=== PATIENT | female | born 1965 | race Caucasian/White ===

== ENCOUNTER 2022-01-04 03:29 | Emergency (ER) | payer MEDICAID ==
[~2022-01-04 03:29] MED LIST: ASPI-1393 PO; CIPR250T4 PO; ISO10 PO; LOSA50TA3 PO; METO25TA3 PO; PIOG15TA8 PO
--- NOTE | 2022-01-04 03:31 | NUR ---
Patient triaged and placed in waiting room. VSS and patient appears in no acute distress at this time. Accompanied by family members, awaiting room placement, and MD Gordon notified of need for MSE. Addendum: 01/04/22 at 0427 by [email or web address] BRISA GARDNER
--- NOTE | 2022-01-04 03:35 | NUR ---
Placed in room 04. Placed on rn cardiac, blood pressure machine and pulse oximeter. To gown for exam. Side rails up. Report given to BRISA Artis.
[2022-01-04 03:40] VITALS: BP_SYST 129
--- NOTE | 2022-01-04 03:45 | NUR ---
SANJANA Gordon at bedside examining patient.
[2022-01-04] MEDS ORDERED: ACETAMINOPHEN 500 MG TABLET PO ONE (04:15)
[2022-01-04] MEDS ORDERED: ACETAMINOPHEN 500 MG TABLET ONE (04:30)
--- NOTE | 2022-01-04 04:45 | NUR ---
Patient given written and verbal discharge instructions and verbalizes understanding. ER MD Gordon discussed with patient the results and treatment provided. Patient in stable condition. ID arm band removed. Patient educated on pain management and to follow up with PMD. Pain Scale 2/10 Opportunity for questions provided and answered. Medication side effect fact sheet provided.
[2022-01-04 04:46] VITALS: BP_SYST 122
== END 2022-01-04 04:45 | disposition home or self-care (01) ==
LOC: SED 03:29
DX: G44.209 Tension-type headache, unspecified, not intractable (principal); E11.65 Type 2 diabetes mellitus with hyperglycemia
CPT/HCPCS: 99282

== ENCOUNTER 2022-03-01 15:49 | Emergency (ER) | payer MEDICAID ==
[~2022-03-01] VITALS: Ht 154.9 cm; Wt 90.7 kg
[2022-03-01 15:57] VITALS: BP_SYST 141
[2022-03-01] MEDS ORDERED: PHEN-726 PO (16:21)
[2022-03-01] MEDS ORDERED: NITR-85 PO (16:21)
[2022-03-01] MEDS ORDERED: nitrofurantoin macrocrystaL 50 MG CAPSULE PO ONE (16:30)
[2022-03-01] MEDS ORDERED: PHENAZOPYRIDINE HCL 100 MG TABLET PO ONE (16:30)
== END 2022-03-01 18:26 | disposition home or self-care (01) ==
LOC: SED 15:49
DX: N39.0 Urinary tract infection, site not specified (principal); E11.9 Type 2 diabetes mellitus without complications; Z86.79 Personal history of other diseases of the circulatory system; Z90.49 Acquired absence of other specified parts of digestive tract; Z79.899 Other long term (current) drug therapy
CPT/HCPCS: 81002; 99283

== ENCOUNTER 2022-03-17 01:01 | Emergency (ER) | payer MEDICAID ==
[~2022-03-17] VITALS: Ht 152.4 cm; Wt 95.3 kg
[~2022-03-17 01:01] MED LIST changes: +NITR-85 PO; +PHEN-726 PO
[2022-03-17 01:23] VITALS: BP_SYST 164
[2022-03-17 02:12] LABS: BASOPHILS # (AUTO) 0.1 K/uL (0.0-0.2); BASOPHILS % (AUTO) 0.7 % (0.0-2.0); EOSINOPHILS # (AUTO) 0.2 K/uL (0.0-0.4); EOSINOPHILS % (AUTO) 2.8 % (0.0-4.0); HEMATOCRIT 33.4 % (36-48); LYMPHOCYTES # (AUTO) 1.2 K/uL (1.0-5.5); LYMPHOCYTES % (AUTO) 14.7 % (20.5-51.5); MEAN CORPUSCULAR HEMOGLOBIN 25 pg (27-31); MEAN CORPUSCULAR HGB CONC 33 % (32-36); MEAN CORPUSCULAR VOLUME 77 fL (79.0-98.0); MONOCYTES # (AUTO) 0.4 K/uL (0.0-1.0); MONOCYTES % (AUTO) 4.5 % (1.7-9.3); NEUTROPHILS # (AUTO) 6.3 K/uL (1.8-7.7); NEUTROPHILS % (AUTO) 77.3 % (40.0-70.0); PLATELET COUNT (AUTO) 306 K/uL (130-430); RED BLOOD CELL COUNT(AUTO) 4.33 MIL/uL (4.2-6.2); RED CELL DISTRIBUTION WIDTH 15.2 % (9.0-15.0); WHITE BLOOD COUNT (AUTO) 8.1 K/uL (4.8-10.8)
[2022-03-17 02:22] LABS: BILIRUBIN,URINE NEGATIVE (NEGATIVE); BLOOD, URINE 3+ (NEGATIVE); CLARITY/URINE CLEAR (CLEAR); COLOR,URINE YELLOW (YELLOW); GLUCOSE,URINE 1+ (NEGATIVE); KETONES,URINE NEGATIVE (NEGATIVE); LEUKOCYTE ESTERASE ,URINE TRACE (NEGATIVE); NITRITE, URINE NEGATIVE (NEGATIVE); PH,URINE 5.5 (5.0-8.0); PROTEIN URINE NEGATIVE (NEGATIVE); UROBILINOGEN,URINE 0.2 (0.2-1.0)
[2022-03-17 02:31] LABS: CALCIUM 9.4 mg/dL (8.4-11.0); CREATININE 1.03 mg/dL (0.55-1.30); POTASSIUM 4.1 mmol/L (3.5-5.1)
[2022-03-17 02:37] LABS: ALBUMIN 3.3 g/dL (3.4-4.8); TOTAL BILIRUBIN 0.4 mg/dL (0.0-1.0)
[2022-03-17 03:17] LABS: RBC,URINE 50-80 /HPF (0-3)
[2022-03-17 03:18] LABS: BACTERIA,URINE FEW /HPF (None Seen); MUCUS,URINE None Seen /LPF (None Seen); WBC,URINE 20-50 /HPF (0-3)
[2022-03-17] MEDS ORDERED: LORazepam 2 MG/ML VIAL IVP ONE (03:30)
[2022-03-17] MEDS ORDERED: NITR-85 PO (06:42)
[2022-03-17 07:06] VITALS: BP_SYST 134
== END 2022-03-17 07:06 | disposition home or self-care (01) ==
LOC: SED 01:01
DX: I10 Essential (primary) hypertension (principal); N39.0 Urinary tract infection, site not specified; E11.9 Type 2 diabetes mellitus without complications; Z88.0 Allergy status to penicillin; Z79.899 Other long term (current) drug therapy
CPT/HCPCS: 99285; 96374; 70450; 80053; 81000; 85025; 87086; 36415; 76376; J2060

== ENCOUNTER 2022-03-24 00:14 | Emergency (ER) | payer MEDICAID ==
[~2022-03-24] VITALS: Ht 154.9 cm; Wt 90.7 kg
[2022-03-24 00:33] VITALS: BP_SYST 147
--- NOTE | 2022-03-24 00:47 | NUR ---
Patient placed in TENT 2 for evaluation.
--- NOTE | 2022-03-24 00:47 | NUR ---
PT came from home with c/o a cough and runny nose. Pt states she has lower back pain. A&O X4, ambulatory, and following commands.
--- NOTE | 2022-03-24 00:51 | NUR ---
COVID AND FLU SAMPLE COLLECTED AND SENT TO LAB.
--- NOTE | 2022-03-24 01:58 | NUR ---
CRITICAL LAB VALUE REPORTED BY LAB.
--- NOTE | 2022-03-24 02:01 | NUR ---
Dr. Gordon with patient in tent.
--- NOTE | 2022-03-24 02:20 | NUR ---
Blood glucose 200. made aware.
[2022-03-24 02:42] VITALS: BP_SYST 152
--- NOTE | 2022-03-24 02:42 | NUR ---
Patient given written and verbal discharge instructions and verbalizes understanding. ER Dr. Gordon discussed with patient the results and treatment provided. Patient in stable condition. ID arm band removed. Patient educated on pain management and to follow up with PMD. Pain Scale. Opportunity for questions provided and answered. Medication side effect fact sheet provided.
== END 2022-03-24 02:42 | disposition home or self-care (01) ==
LOC: SED 00:14
DX: U07.1 COVID-19 (principal); M54.50 Low back pain, unspecified; G89.29 Other chronic pain; R50.9 Fever, unspecified; R05.9 Cough, unspecified; E11.65 Type 2 diabetes mellitus with hyperglycemia; I10 Essential (primary) hypertension; Z88.0 Allergy status to penicillin; Z79.899 Other long term (current) drug therapy
CPT/HCPCS: 36415; 99283

== ENCOUNTER 2022-09-05 22:32 | Emergency (ER) | payer MEDICAID ==
[~2022-09-05] VITALS: Ht 154.9 cm; Wt 90.7 kg
[2022-09-05 23:16] VITALS: BP_SYST 133
--- NOTE | 2022-09-05 23:37 | NUR ---
PATIENT BROUGHT IN WITH DAUGHTER S/P FALL. PATIENT REPORTS SHE WAS WALKING IN THE [employer] AT [employer] WHEN SHE SLIPPED AND FELL ON A PLASTIC BAG LAYING ON THE FLOOR LANDING ON RIGHT SIDE. DENIES KO. COMPLAINING OF NECK PAIN, RIGHT SHOULDER PAIN, RIGHT HIP PAIN AND RIGHT LEG PAIN. AMBULATORY WITH A LIMP. AOX 4. AWAITING MSE
--- NOTE | 2022-09-06 04:00 | NUR ---
ER examining patient in triage room.
--- NOTE | 2022-09-06 07:10 | NUR ---
Report given to Jessica LEDEZMA
[2022-09-06] MEDS ORDERED: KETOROLAC TROMETHAMINE 15 MG VIAL IM ONE (07:15)
[2022-09-06] MEDS ORDERED: HYDROcodone/ACETAMIN 5-325 MG TAB (NORCO/ VICODIN) PO ONE (07:15)
[2022-09-06] MEDS ORDERED: methocarbamoL 500 MG TABLET PO ONE (07:30)
--- NOTE | 2022-09-06 07:58 | NUR ---
Report received from BRISA Lopez 57-year-old female with history of hypertension, diabetes, hyperlipidemia, CAD, presents after ground-level fall yesterday. Patient states she was at the store, she states that she slipped on a plastic bag and fell down onto her right side. Patient complaining pain mostly to her right shoulder, neck, right upper back. She also complains of pain all down her back. She denies any lower extremity weakness or sensory changes, no bowel or bladder incontinence.
--- NOTE | 2022-09-06 08:29 | NUR ---
PT RESTING IN [facility] WITH WARM BLANKETS, PILLOW POSITIONAL FOR COMFORT.
[2022-09-06 08:35] LABS: BASOPHILS % (AUTO) 0.6 % (0.0-2.0); EOSINOPHILS # (AUTO) 0.2 K/uL (0.0-0.4); HEMATOCRIT 31.8 % (36-48); HEMOGLOBIN 10.4 g/dL (12.0-16.0); LYMPHOCYTES # (AUTO) 1.2 K/uL (1.0-5.5); LYMPHOCYTES % (AUTO) 16.4 % (20.5-51.5); MEAN CORPUSCULAR HEMOGLOBIN 27 pg (27-31); MEAN CORPUSCULAR HGB CONC 33 % (32-36); MEAN CORPUSCULAR VOLUME 82 fL (79.0-98.0); MONOCYTES # (AUTO) 0.3 K/uL (0.0-1.0); MONOCYTES % (AUTO) 3.9 % (1.7-9.3); NEUTROPHILS # (AUTO) 5.8 K/uL (1.8-7.7); NEUTROPHILS % (AUTO) 76.1 % (40.0-70.0); PLATELET COUNT (AUTO) 300 K/uL (130-430); RED BLOOD CELL COUNT(AUTO) 3.89 MIL/uL (4.2-6.2); RED CELL DISTRIBUTION WIDTH 14.7 % (9.0-15.0); WHITE BLOOD COUNT (AUTO) 7.6 K/uL (4.8-10.8)
[2022-09-06 08:41] LABS: ANION GAP 9 (5-15); CALCIUM 10.3 mg/dL (8.4-11.0); CHLORIDE 102 mmol/L (98-107); CREATININE 1.21 mg/dL (0.55-1.30); GLUCOSE 128 mg/dL (70-99); UREA NITROGEN, BLOOD 19 mg/dL (8-21)
[2022-09-06 08:48] LABS: ALANINE AMINOTRANSFERASE 17 U/L (12-78); ALBUMIN 3.8 g/dL (3.4-4.8); ASPARTATE AMINOTRANSFERASE 15 U/L (10-37); TOTAL BILIRUBIN 0.3 mg/dL (0.0-1.0)
[2022-09-06 08:52] LABS: GFR AFRICAN AMERICAN 59 mL/min (>90)
[2022-09-06] MEDS ORDERED: ACET-2634 PO (10:50)
[2022-09-06] MEDS ORDERED: METH-634 PO (10:50)
[2022-09-06] MEDS ORDERED: LIDO1ADH71 TD (10:50)
[2022-09-06] MEDS ORDERED: MECLIZINE HCL 25 MG TABLET (ANITVERT) PO ONE (11:00)
--- NOTE | 2022-09-06 12:37 | NUR ---
Patient given written and verbal discharge instructions and verbalizes understanding. ER MD discussed with patient the results and treatment provided. Patient in stable condition. ID arm band removed. IV catheter removed intact and dressing applied, no active bleeding. Patient educated on pain management and to follow up with PMD. Opportunity for questions provided and answered. Medication side effect fact sheet provided.
[2022-09-06 12:38] VITALS: BP_SYST 130
== END 2022-09-06 12:38 | disposition home or self-care (01) ==
LOC: SED 22:32
DX: S23.3XXA Sprain of ligaments of thoracic spine, initial encounter (principal); S20.211A Contusion of right front wall of thorax, initial encounter; R42 Dizziness and giddiness; E11.9 Type 2 diabetes mellitus without complications; Z88.0 Allergy status to penicillin; Z79.899 Other long term (current) drug therapy; W01.0XXA Fall on same level from slipping, tripping and stumbling without subsequent striking against object, initial encounter; Y93.89 Activity, other specified; Y92.89 Other specified places as the place of occurrence of the external cause; Y99.8 Other external cause status
CPT/HCPCS: 99285; 80053; 82550; 83880; 85025; 84484; 36415; 70450; 71045; 93005; 72170; 73030; 71250; 72125; 72128; 72131; 74176; 76376; J8597

== ENCOUNTER 2022-10-02 16:38 | Emergency (ER) | payer MEDICAID ==
[~2022-10-02] VITALS: Ht 154.9 cm; Wt 90.7 kg
[~2022-10-02 16:38] MED LIST changes: +ACET-2634 PO; +LIDO1ADH71 TD; +METH-634 PO
[2022-10-02 17:13] VITALS: BP_SYST 100
[2022-10-02 17:47] LABS: BILIRUBIN,URINE NEGATIVE (NEGATIVE); BLOOD, URINE 3+ (NEGATIVE); CLARITY/URINE TURBID (CLEAR); COLOR,URINE ORANGE (YELLOW); GLUCOSE,URINE TRACE (NEGATIVE); KETONES,URINE NEGATIVE (NEGATIVE); LEUKOCYTE ESTERASE ,URINE 3+ (NEGATIVE); NITRITE, URINE POSITIVE (NEGATIVE); PROTEIN URINE 2+ (NEGATIVE)
[2022-10-02 18:24] LABS: ANION GAP 10 (5-15); CALCIUM 10.5 mg/dL (8.4-11.0); CHLORIDE 98 mmol/L (98-107); CREATININE 2.76 mg/dL (0.55-1.30); UREA NITROGEN, BLOOD 54 mg/dL (8-21)
[2022-10-02 18:25] LABS: BASOPHILS % (AUTO) 0.1 % (0.0-2.0); EOSINOPHILS # (AUTO) 0.1 K/uL (0.0-0.4); EOSINOPHILS % (AUTO) 0.6 % (0.0-4.0); HEMATOCRIT 28.6 % (36-48); LYMPHOCYTES # (AUTO) 0.8 K/uL (1.0-5.5); MEAN CORPUSCULAR HEMOGLOBIN 26 pg (27-31); MEAN CORPUSCULAR HGB CONC 32 % (32-36); MEAN CORPUSCULAR VOLUME 81 fL (79.0-98.0); MONOCYTES # (AUTO) 0.5 K/uL (0.0-1.0); MONOCYTES % (AUTO) 3.1 % (1.7-9.3); NEUTROPHILS # (AUTO) 13.8 K/uL (1.8-7.7); NEUTROPHILS % (AUTO) 91.2 % (40.0-70.0); PLATELET COUNT (AUTO) 514 K/uL (130-430); RED BLOOD CELL COUNT(AUTO) 3.52 MIL/uL (4.2-6.2); RED CELL DISTRIBUTION WIDTH 14.7 % (9.0-15.0); WHITE BLOOD COUNT (AUTO) 15.2 K/uL (4.8-10.8)
[2022-10-02 18:31] LABS: ALANINE AMINOTRANSFERASE 7 U/L (12-78); ALBUMIN 2.5 g/dL (3.4-4.8); AMYLASE 37 U/L (0-100); ASPARTATE AMINOTRANSFERASE 7 U/L (10-37); C-REACTIVE PROTEIN QUANT 14.2 mg/dL (0-0.5); LIPASE 249 U/L (73-393); TOTAL BILIRUBIN 0.4 mg/dL (0.0-1.0)
[2022-10-02 18:41] LABS: BACTERIA,URINE MANY /HPF (None Seen); RBC,URINE 50-80 /HPF (0-3); WBC,URINE >100 /HPF (0-3)
[2022-10-02 18:42] LABS: MUCUS,URINE 1+ /LPF (None Seen)
[2022-10-02 18:45] LABS: GFR AFRICAN AMERICAN 23 mL/min (>90)
[2022-10-02 18:46] LABS: GLUCOSE 428 mg/dL (70-99)
[2022-10-02 19:29] LABS: ACETONE, SERUM NEGATIVE (NEGATIVE)
[2022-10-02] MEDS ORDERED: cefTRIAXone 1 GM in D5W 50 ML IV ONE (20:30)
[2022-10-02] MEDS ORDERED: cefTRIAXone 1 GM VIAL ONE (20:36)
[2022-10-02] MEDS ORDERED: NITR-85 PO (21:15)
[2022-10-02] MEDS ORDERED: IBUP-1969 PO (21:15)
[2022-10-02 21:35] VITALS: BP_SYST 128
== END 2022-10-02 21:32 | disposition home or self-care (01) ==
LOC: SED 16:38
DX: N10 Acute pyelonephritis (principal); R10.11 Right upper quadrant pain; R11.10 Vomiting, unspecified; R19.7 Diarrhea, unspecified; E11.9 Type 2 diabetes mellitus without complications; Z88.0 Allergy status to penicillin; Z79.899 Other long term (current) drug therapy
CPT/HCPCS: 99285; 74176; 96365; 80053; 81000; 82009; 82150; 84703; 83690; 85025; 86140; 87086; 36415; 76376; 83605; J0696; J7060

== ENCOUNTER 2022-12-27 17:11 | Emergency (ER) | payer MEDICAID ==
[~2022-12-27] VITALS: Ht 149.9 cm; Wt 77.1 kg
[~2022-12-27 17:11] MED LIST changes: +IBUP-1969 PO
[2022-12-27 18:02] VITALS: BP_SYST 112
[2022-12-27] MEDS ORDERED: KETOROLAC TROMETHAMINE 30 MG VIAL IM ONE (18:30)
[2022-12-27 18:48] LABS: BILIRUBIN,URINE NEGATIVE (NEGATIVE); BLOOD, URINE 3+ (NEGATIVE); CLARITY/URINE TURBID (CLEAR); COLOR,URINE YELLOW (YELLOW); GLUCOSE,URINE 3+ (NEGATIVE); KETONES,URINE NEGATIVE (NEGATIVE); LEUKOCYTE ESTERASE ,URINE 2+ (NEGATIVE); NITRITE, URINE NEGATIVE (NEGATIVE); PROTEIN URINE 1+ (NEGATIVE); UROBILINOGEN,URINE 0.2 (0.2-1.0)
[2022-12-27 19:06] LABS: BACTERIA,URINE FEW /HPF (None Seen); MUCUS,URINE None Seen /LPF (None Seen); WBC,URINE 80-100 /HPF (0-3); YEAST,URINE Few /HPF (None Seen)
[2022-12-27] MEDS ORDERED: cefTRIAXone 1 GM in D5W 50 ML IV ONE (19:30)
[2022-12-27] MEDS ORDERED: cefTRIAXone 1 GM VIAL ONE (20:09)
[2022-12-27] MEDS ORDERED: FLUCONAZOLE 200 MG TABLET (DIFLUCAN) PO ONE (20:15)
[2022-12-27] MEDS ORDERED: SULF1TAB48 PO (20:42)
[2022-12-27] MEDS ORDERED: IBUP-1969 PO (20:42)
[2022-12-27 20:50] VITALS: BP_SYST 110
== END 2022-12-27 20:50 | disposition home or self-care (01) ==
LOC: SED 17:11
DX: N39.0 Urinary tract infection, site not specified (principal); R33.9 Retention of urine, unspecified; R10.30 Lower abdominal pain, unspecified; E11.9 Type 2 diabetes mellitus without complications; Z88.0 Allergy status to penicillin; Z79.899 Other long term (current) drug therapy
CPT/HCPCS: 99283; 81000; 87086; 96372; J0696; J1885

== ENCOUNTER 2023-01-27 22:28 | Emergency (ER) | payer MEDICAID ==
[~2023-01-27] VITALS: Ht 149.9 cm; Wt 77.1 kg
[~2023-01-27 22:28] MED LIST changes: +SULF1TAB48 PO
[2023-01-27 23:00] VITALS: BP_SYST 121
[2023-01-28 00:29] LABS: BASOPHILS % (AUTO) 0.4 % (0.0-2.0); EOSINOPHILS # (AUTO) 0.2 K/uL (0.0-0.4); EOSINOPHILS % (AUTO) 2.8 % (0.0-4.0); HEMATOCRIT 27.3 % (36-48); HEMOGLOBIN 9.1 g/dL (12.0-16.0); LYMPHOCYTES # (AUTO) 1.2 K/uL (1.0-5.5); LYMPHOCYTES % (AUTO) 13.6 % (20.5-51.5); MEAN CORPUSCULAR HEMOGLOBIN 28 pg (27-31); MEAN CORPUSCULAR HGB CONC 33 % (32-36); MEAN CORPUSCULAR VOLUME 85 fL (79.0-98.0); MONOCYTES # (AUTO) 0.4 K/uL (0.0-1.0); MONOCYTES % (AUTO) 5.2 % (1.7-9.3); NEUTROPHILS # (AUTO) 6.6 K/uL (1.8-7.7); PLATELET COUNT (AUTO) 351 K/uL (130-430); RED BLOOD CELL COUNT(AUTO) 3.22 MIL/uL (4.2-6.2); RED CELL DISTRIBUTION WIDTH 14.5 % (9.0-15.0); WHITE BLOOD COUNT (AUTO) 8.5 K/uL (4.8-10.8)
[2023-01-28 01:01] LABS: CALCIUM 9.1 mg/dL (8.4-11.0); CREATININE 1.73 mg/dL (0.55-1.30)
[2023-01-28 01:06] LABS: TOTAL BILIRUBIN 0.4 mg/dL (0.0-1.0)
[2023-01-28] MEDS ORDERED: ACETAMINOPHEN 500 MG TABLET PO ONE (02:00)
[2023-01-28] MEDS ORDERED: FERR236T3 PO (03:16)
[2023-01-28 04:39] VITALS: BP_SYST 121
== END 2023-01-28 04:39 | disposition home or self-care (01) ==
LOC: SED 22:28
DX: N93.9 Abnormal uterine and vaginal bleeding, unspecified (principal); D64.9 Anemia, unspecified; E11.9 Type 2 diabetes mellitus without complications; Z88.0 Allergy status to penicillin; Z85.41 Personal history of malignant neoplasm of cervix uteri; Z79.899 Other long term (current) drug therapy
CPT/HCPCS: 36415; 76830-TC; 76857; 80053; 83690; 84484; 85025; 86886; 86900; 86901; 99284